=== PATIENT | female | born 1980 | race Two or more races ===

== ENCOUNTER 2018-11-20 18:24 | Emergency (ER) | payer OTHER ==
[~2018-11-20] VITALS: Ht 160 cm; Wt 95.3 kg
--- NOTE | 2018-11-20 18:36 | NUR ---
SEEN AND EXAMINED BY .
--- NOTE | 2018-11-20 18:40 | NUR ---
C/O VAGINAL BLEED STARTED 1HR AGO, PT IS 28WEEKS . PATIENT A/OX4, BREATHING EVEN AND UNLABORED, NO SOB NOTED. PATIENT ASSISTED TO ROOM. URINE SAMPLE OBTAINED AND SENT TO LAB.
--- NOTE | 2018-11-20 18:45 | NUR ---
URINE SPECIMEN COLLECTED AND SENT TO LAB
[2018-11-20 19:02] LABS: BILIRUBIN,URINE Negative (NEGATIVE); BLOOD, URINE Large Ery/uL (NEGATIVE); COLOR,URINE Yellow (YELLOW); KETONES,URINE Trace (NEGATIVE); LEUKOCYTE ESTERASE ,URINE Moderate (NEGATIVE); NITRITE, URINE Negative (NEGATIVE); PROTEIN,URINE Negative (NEGATIVE); UGLUCOSE Negative (NEGATIVE); UROBILINOGEN,URINE 0.2 EU/dL (0.2)
[2018-11-20 19:14] LABS: APPEARANCE,URINE CLOUDY (CLEAR)
--- NOTE | 2018-11-20 19:20 | NUR ---
ENDORSED TO SURJIT KELLER FOR ASHTYN.
--- NOTE | 2018-11-20 19:30 | NUR ---
US AT BEDSIDE.
[2018-11-20 19:31] LABS: BACTERIA,URINE 2+ /HPF (None Seen); RBC,URINE 21-50 /HPF (0-2); SQUAMOUS EPITHELIAL CELL,UR Few /HPF (None Seen)
[2018-11-20] MEDS ORDERED: CEPHALEXIN MONOHYDRATE 500 MG CAPSULE PO ONE ×2 (20:00→20:17)
[2018-11-20 20:24] VITALS: BP 127/66
--- NOTE | 2018-11-20 20:24 | NUR ---
Patient discharged to home in stable condition. Written and verbal after care instructions given. Patient verbalizes understanding of instruction.
== END 2018-11-20 20:25 | disposition home or self-care (01) ==
LOC: ER 18:28
DX: O23.42 Unspecified infection of urinary tract in pregnancy, second trimester (principal); Z3A.27 27 weeks gestation of pregnancy
CPT/HCPCS: 76805-TC; 81000-TC; 84703-TC; 87086-TC